=== PATIENT | female | born 1935 | race Caucasian/White ===

== ENCOUNTER → 2020-10-03 | Outpatient (CLI) | payer MEDICARE ==
[~2020-10-03] MED LIST: PERFLUTREN PROTEIN-A MICROSPHR 0.22 MG/ML 3 ML VIAL. IV ONE
--- NOTE | 2020-10-03 13:25 | CARD ---
MR#: [id number] Date of Study: 10/03/2020 Ordering Physician: JANES ROSE, Referring Physician: JANES ROSE Tech: Tiffanie Alatorre [facility] APPROVED REPORT EXAM: Two-dimensional and M-mode echocardiogram with Doppler and color Doppler. Other Information Quality : Technically LimitedHR: 78bpm Rhythm : NSR INDICATION COPD Dyspnea CAD Echo Enhancing Agent Indication: Endocardial border delineation Agent/Amount Used: Optison 2mL RISK FACTORS Hypertension Hyperlipidemia 2D DIMENSIONS RVDd3.3 (2.9-3.5cm)IVSd0.9 (0.7-1.1cm) LVDd3.3 (3.9-5.9cm)PWd1.0 (0.7-1.1cm) LVDs1.8 (2.5-4.0cm)FS (%) 44.8 % SV34.3 mlLVEF(%)77.3 (>50%) Aortic Valve AoV Peak Fabio.92.2cm/sAoV VTI19.5cm AO Peak GR.3.4mmHgLVOT Peak Fabio.111.5cm/s LVOT VTI 28.59cmAO Mean GR.2mmHg Mitral Valve MV E Zyhipwao00.2cm/sMV DECEL [id number] MV A Hplntbqq98.0cm/sMV [id number] E/A Ratio0.8MVA (PHT)3.32cm2 TDI E/Lateral E'6.9E/Medial E'9.4 Pulmonary Valve PV Peak Decjoegd552.4cm/sPV Peak Grad.5mmHg Tricuspid Valve TR P. Wmwrssrm509jd/sTR Peak Gr.18mmHg LEFT VENTRICLE The left ventricle is normal size. There is normal left ventricular wall thickness. The left ventricu lar systolic function is normal and the ejection fraction is within normal range. Estimated ejection fraction 60-65%. There is normal LV segmental wall motion. Transmitral Doppler flow pattern is Grade I-abnormal relaxation pattern. RIGHT VENTRICLE The right ventricle is normal size. There is normal right ventricular wall thickness. The right ventr icular systolic function is normal. ATRIA The left atrium size is normal. The right atrium size is normal. The interatrial septum is intact wit h no evidence for an atrial septal defect or patent foramen ovale as noted on 2-D or Doppler imaging. AORTIC VALVE The aortic valve is normal in structure and function. Doppler and Color Flow revealed no significant aortic regurgitation. There is no significant aortic valvular stenosis. MITRAL VALVE The mitral valve is normal in structure and function. There is no evidence of mitral valve prolapse. There is no mitral valve stenosis. Doppler and Color Flow revealed no mitral valve regurgitation note d. TRICUSPID VALVE The tricuspid valve is normal in structure and function. Doppler and Color Flow revealed trace tricus pid regurgitation. Estimated PAP 21 mmHg. There is no tricuspid valve stenosis. PULMONIC VALVE Doppler and Color Flow revealed no pulmonic valvular regurgitation. There is no pulmonic valvular surya nosis. GREAT VESSELS The aortic root is normal in size. The ascending aorta is normal in size. The IVC is normal in size a nd collapses >50% with inspiration. PERICARDIAL EFFUSION There is no evidence of significant pericardial effusion. Critical Notification Critical Value: No <Conclusion> The left ventricular systolic function is normal and the ejection fraction is within normal range. E stimated ejection fraction 60-65%. There is normal LV segmental wall motion. Signed by : Kulwant Nath, Electronically Approved : 10/03/2020 13:24:52
--- NOTE | 2020-10-03 13:30 | RAD ---
MR#: [id number] Date of Study: 10/03/2020 Ordering Physician: JANES ROSE, Referring Physician: JANES ROSE, Tech: Mariana Ornelas, RDMS, RVT, RTR APPROVED REPORT Patient Location: OUT-PATIENT Indications CAD; Cold Feet Risk Factors Hypertension Hyperlipidemia VELOCITY AND DOPPLER WAVEFORM ANALYSIS RIGHT cm/secWaveformSeverity LEFT cm/secWaveform Severity pCFA 235.2BiphasicpCFA 186.4Biphasic dCFA 121.5BiphasicdCFA 150.4Biphasic Prof Fem Art. 136.3BiphasicProf Fem Art. 165.8Biphasic Fem Art Prox. 147.8BiphasicFem Art Prox. 124.7Biphasic Fem Art Mid. 115.7BiphasicFem Art Mid. 124.7Biphasic Fem Art Dist. 76.0BiphasicFem Art Dist. 126.0Biphasic Pop Art(AK) 90.1BiphasicPop Art(AK) 74.4Biphasic AUTOMATIC TIRE TESTER Prox. 85.1BiphasicPTA Prox. 80.2Biphasic AUTOMATIC TIRE TESTER Dist. 58.5BiphasicPTA Dist. 55.9Biphasic Per Art Prox. 95.9BiphasicPer Art Prox. 90.9Biphasic BERTO Prox. 95.9BiphasicATA Prox. 70.7Biphasic DPA 50BiphasicDPA 85Biphasic Findings Grayscale images demonstrate moderate diffuse plaque involving the bilateral lower extremity arterial vessels. Mildly elevated velocities are noted at the right common femoral artery but no focal high- grade stenosis identified. There is three-vessel runoff below the knee with adequate velocities. Critical Notification Critical Value: No <Conclusion> 1. No significant lower extremity arterial disease noted with three-vessel runoff below the knee. Th ere are mostly biphasic waveforms throughout the arterial course. 2. Mildly elevated velocities of the bilateral common femoral arteries could suggest more proximal i nflow disease, correlate with clinical exam or consider FANNY study. Signed by : Kulwant Nath, Electronically Approved : 10/03/2020 13:30:32
== END ==
LOC: ECHO 08:44
PROVIDERS: ATTEND Internal Medicine Cardiovascular Disease
DX: I25.10 Atherosclerotic heart disease of native coronary artery without angina pectoris (principal); I70.203 Unspecified atherosclerosis of native arteries of extremities, bilateral legs; I10 Essential (primary) hypertension; E78.5 Hyperlipidemia, unspecified
CPT/HCPCS: 93306; 93925; Q9956

== ENCOUNTER → 2020-11-11 | Outpatient (CLI) | payer MEDICARE ==
[2020-11-11 12:56] LABS: BASO # 0.1 x10^3/uL (0.0-0.2); BASO % 1 % (0-3); EOS # 0.5 x10^3/uL (0.0-0.7); EOS % 7 % (0-3); HEMATOCRIT 24.1 % (36.0-47.0); HEMOGLOBIN 7.5 g/dL (12.0-15.5); LYMPH # 1.7 x10^3/uL (1.0-4.8); LYMPH % 22 % (24-48); MEAN CORPUSCULAR HEMOGLOBIN 26 pg (25-35); MEAN CORPUSCULAR HGB CONC 31 g/dL (31-37); MEAN CORPUSCULAR VOLUME 83 fL (79-100); MONO # 0.6 x10^3/uL (0.0-1.1); MONO % 8 % (0-9); NEUT # 4.9 x10^3/uL (1.8-7.7); NEUT % 64 % (31-73); PLATELET COUNT 320 x10^3/uL (140-400); RED BLOOD COUNT 2.91 x10^6/uL (3.50-5.40); RED CELL DISTRIBUTION WIDTH 17.3 % (11.5-14.5); WHITE BLOOD COUNT 7.7 x10^3/uL (4.0-11.0)
[2020-11-11 13:13] LABS: ANION GAP 12 (6-14); BLOOD UREA NITROGEN 19 mg/dL (7-20); BUN/CREATININE RATIO 17 (6-20); CARBON DIOXIDE 22 mmol/L (21-32); CHLORIDE 109 mmol/L (98-107); CREATININE 1.1 mg/dL (0.6-1.0); GFR 47.3; GLUCOSE 87 mg/dL (70-99); POTASSIUM 4.3 mmol/L (3.5-5.1); SODIUM 143 mmol/L (136-145)
[2020-11-11 13:19] LABS: ALBUMIN 3.5 g/dL (3.4-5.0); ALK PHOS 320 U/L (46-116); ALT (SGPT) 56 U/L (14-59); AST (SGOT) 38 U/L (15-37); LACTATE DEHYDROGENASE 207 U/L (81-234); TOTAL BILIRUBIN 0.3 mg/dL (0.2-1.0)
[2020-11-11 13:20] LABS: C-REACTIVE PROTEIN < 0.5 mg/L (0-3.3)
[2020-11-11 15:26] LABS: ANISOCYTOSIS SLIGHT; PLT ESTIMATE ADEQUATE (ADEQUATE); POIKILOCYTOSIS SLIGHT; SCHISTOCYTES FEW
[2020-11-11 15:27] LABS: OVALOCYTES FEW
[2020-11-11 20:08] LABS: RHEUMATOID FACTOR <10.0 IU/mL (0.0-13.9)
[2020-11-12 13:17] LABS: KAPPA LAMBDA RATIO 1.12 (0.26-1.65); LAMBDA FREE 36.6 mg/L (5.7-26.3)
[2020-11-12 14:30] LABS: CALCIUM PTH 10.5 mg/dL (8.7-10.3); CREATININE PTH 0.96 mg/dL (0.57-1.00); PHOSPHORUS PTH 2.6 mg/dL (3.0-4.3); PTH INTACT 189 pg/mL (15-65)
[2020-11-12 15:18] LABS: ALBUM 3.3 g/dL (2.9-4.4); ALPHA 1 0.3 g/dL (0.0-0.4); ALPHA 2 0.8 g/dL (0.4-1.0); PROTEIN TOTAL 6.4 g/dL (6.0-8.5); SPEP AG RATIO 1.1 (0.7-1.7)
[2020-11-12 18:09] LABS: ANA INTERP Negative (.)
== END ==
LOC: ONCLAB 11:54
PROVIDERS: ATTEND Internal Medicine
DX: D50.8 Other iron deficiency anemias (principal)
CPT/HCPCS: 36415; 80053; 82306; 82525; 83010; 83520; 83615; 83970; 84165; 85025; 85045; 85651; 86038; 86140; 86200; 86317; 86431; 86704; 86803; 86880; 87340

== ENCOUNTER → 2020-11-21 | Outpatient (CLI) | payer MEDICARE ==
[2020-11-21 12:06] LABS: BASO # 0.1 x10^3/uL (0.0-0.2); BASO % 1 % (0-3); EOS # 0.4 x10^3/uL (0.0-0.7); EOS % 7 % (0-3); HEMOGLOBIN 8.1 g/dL (12.0-15.5); LYMPH # 1.1 x10^3/uL (1.0-4.8); LYMPH % 18 % (24-48); MEAN CORPUSCULAR HEMOGLOBIN 28 pg (25-35); MEAN CORPUSCULAR HGB CONC 32 g/dL (31-37); MEAN CORPUSCULAR VOLUME 86 fL (79-100); MONO # 0.5 x10^3/uL (0.0-1.1); MONO % 9 % (0-9); NEUT % 66 % (31-73); PLATELET COUNT 250 x10^3/uL (140-400); RED CELL DISTRIBUTION WIDTH 23.6 % (11.5-14.5); WHITE BLOOD COUNT 6.1 x10^3/uL (4.0-11.0)
[2020-11-21 12:26] LABS: CALCIUM 9.6 mg/dL (8.5-10.1); CREATININE 1.4 mg/dL (0.6-1.0); GFR 35.8; POTASSIUM 4.6 mmol/L (3.5-5.1)
[2020-11-21 12:31] LABS: ALBUMIN 3.1 g/dL (3.4-5.0); TOTAL BILIRUBIN 0.2 mg/dL (0.2-1.0); TOTAL PROTEIN 6.3 g/dL (6.4-8.2)
== END ==
LOC: ONCLAB 11:45
PROVIDERS: ATTEND Physician Assistant
DX: D50.8 Other iron deficiency anemias (principal)
CPT/HCPCS: 36415; 80053; 85025

== ENCOUNTER → 2020-12-04 | Outpatient (CLI) | payer MEDICARE ==
[2020-12-04 10:57] LABS: BASO # 0.1 x10^3/uL (0.0-0.2); BASO % 1 % (0-3); EOS # 0.6 x10^3/uL (0.0-0.7); EOS % 10 % (0-3); HEMATOCRIT 30.6 % (36.0-47.0); HEMOGLOBIN 9.8 g/dL (12.0-15.5); LYMPH # 1.1 x10^3/uL (1.0-4.8); LYMPH % 18 % (24-48); MEAN CORPUSCULAR HEMOGLOBIN 29 pg (25-35); MEAN CORPUSCULAR HGB CONC 32 g/dL (31-37); MEAN CORPUSCULAR VOLUME 89 fL (79-100); MONO # 0.5 x10^3/uL (0.0-1.1); MONO % 8 % (0-9); NEUT # 3.9 x10^3/uL (1.8-7.7); NEUT % 63 % (31-73); PLATELET COUNT 231 x10^3/uL (140-400); RED BLOOD COUNT 3.43 x10^6/uL (3.50-5.40); RED CELL DISTRIBUTION WIDTH 24.1 % (11.5-14.5); WHITE BLOOD COUNT 6.1 x10^3/uL (4.0-11.0)
[2020-12-04 11:08] LABS: CALCIUM 9.9 mg/dL (8.5-10.1); CREATININE 1.3 mg/dL (0.6-1.0); POTASSIUM 4.6 mmol/L (3.5-5.1)
== END ==
LOC: ONCLAB 10:40
PROVIDERS: ATTEND Physician Assistant
DX: D50.8 Other iron deficiency anemias (principal)
CPT/HCPCS: 36415; 80048; 85025

== ENCOUNTER → 2020-12-12 | Outpatient (CLI) | payer MEDICARE ==
[~2020-12-12] MED LIST changes: +IOHEXOL 300 MG/ML 100ML VIAL. IV ONE; +IOHEXOL 300 MG/ML 50 ML VIAL. IJ ONE; -PERFLUTREN PROTEIN-A MICROSPHR 0.22 MG/ML 3 ML VIAL. IV ONE
[2020-12-12] MEDS: IOHEXOL 240 MG/ML 50ML VIAL. PO ONE (11:00)
--- NOTE | 2020-12-12 13:13 | RAD ---
EXAM: Abdomen and pelvis CT with intravenous contrast. HISTORY: Iron deficiency anemia. TECHNIQUE: Computed tomographic images of the abdomen and pelvis were obtained following the administ ration of intravenous contrast. Multiplanar reformatting was performed. *One or more of the following individualized dose reduction techniques were utilized for this examina tion: 1. Automated exposure control. 2. Adjustment of the mA and/or kV according to patient size. 3. Use of iterative reconstruction technique. COMPARISON: None. FINDINGS: Evaluation of the lower thorax demonstrates a small fat-containing posterior right diaphrag matic hernia. There is lateral posterior dependent and basilar atelectasis. There is no infiltrate, p leural effusion or suspicious pulmonary nodule. No suspicious hepatic lesion is seen. There is biliary ductal dilatation. This is likely due to reservoir effect status post cholecystomy. There are calcifications within the pancreatic tail. These are vascular or due to the sequela of product design engineer dae pancreatitis. There are splenic granulomas. The spleen is normal in size. The adrenal glands are unremarkable. 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 There is a 7 mm simple appearing left renal c yst and 5 mm simple appearing right renal cyst. There is no appendicitis. There is colonic diverticulosis. There is no convincing diverticulitis. The re is no bowel obstruction. The bladder is unremarkable. There is no adnexal lesion. The aorta is nor mal in caliber. There is no lymphadenopathy. There is grade 1 anterolisthesis at the lower lumbar lev els. There is multilevel degenerative change involving the spine, primarily at L5-S1. IMPRESSION: 1. Colonic diverticulosis. 2. Biliary ductal dilatation. This can be seen with reservoir effect status post cholecystectomy. 3. Small simple appearing renal cysts. Follow-up is not routinely performed for simple cysts. Electronically signed by: Carrie Esquivel MD (12/12/2020 1:11 PM) [id number]
== END ==
LOC: CT 10:31
PROVIDERS: ATTEND Internal Medicine Gastroenterology
DX: K57.30 Diverticulosis of large intestine without perforation or abscess without bleeding (principal); N28.1 Cyst of kidney, acquired; M43.16 Spondylolisthesis, lumbar region; M47.817 Spondylosis without myelopathy or radiculopathy, lumbosacral region; K44.9 Diaphragmatic hernia without obstruction or gangrene
CPT/HCPCS: 74177; Q9966

== ENCOUNTER → 2020-12-18 | Outpatient (CLI) | payer MEDICARE ==
[2020-12-18 10:46] LABS: BASO # 0.1 x10^3/uL (0.0-0.2); BASO % 1 % (0-3); EOS # 0.9 x10^3/uL (0.0-0.7); EOS % 13 % (0-3); HEMATOCRIT 31.7 % (36.0-47.0); HEMOGLOBIN 10.5 g/dL (12.0-15.5); LYMPH # 1.2 x10^3/uL (1.0-4.8); LYMPH % 18 % (24-48); MEAN CORPUSCULAR HEMOGLOBIN 30 pg (25-35); MEAN CORPUSCULAR HGB CONC 33 g/dL (31-37); MEAN CORPUSCULAR VOLUME 90 fL (79-100); MONO # 0.5 x10^3/uL (0.0-1.1); MONO % 7 % (0-9); NEUT # 4.2 x10^3/uL (1.8-7.7); NEUT % 61 % (31-73); PLATELET COUNT 236 x10^3/uL (140-400); RED BLOOD COUNT 3.54 x10^6/uL (3.50-5.40); RED CELL DISTRIBUTION WIDTH 22.3 % (11.5-14.5); WHITE BLOOD COUNT 6.9 x10^3/uL (4.0-11.0)
[2020-12-18 10:56] LABS: CALCIUM 10.1 mg/dL (8.5-10.1); CREATININE 1.1 mg/dL (0.6-1.0); GFR 47.3; POTASSIUM 3.9 mmol/L (3.5-5.1)
[2020-12-18 11:13] LABS: ALBUMIN 3.3 g/dL (3.4-5.0); TOTAL BILIRUBIN 0.3 mg/dL (0.2-1.0); TOTAL PROTEIN 6.6 g/dL (6.4-8.2)
[2020-12-18 13:16] LABS: ANISOCYTOSIS MOD; PLT ESTIMATE ADEQUATE (ADEQUATE)
== END ==
LOC: ONCLAB 10:28
PROVIDERS: ATTEND Internal Medicine Hematology & Oncology
DX: D50.8 Other iron deficiency anemias (principal)
CPT/HCPCS: 36415; 80053; 82728; 83540; 83550; 85025

== ENCOUNTER 2020-12-26 17:23 | Inpatient (IN) | payer MEDICARE ==
[~2020-12-26] VITALS: Ht 149.9 cm; Wt 57.2 kg
--- NOTE | 2020-12-26 18:53 | PHYS DOC ---
General Adult EDM: Chief Complaint: BLOODY STOOL HPI: HPI: 85-year-old female past medical history of CAD (3 stents 05/2020 on Brilinta), BASHIR w/iron transfusions/daily iron (last transfusion 11/21/20), polymyalgia rheumatica, hyperlipidemia, hypertension and GERD, presents the ED with her biological daughter (patient consents to his/her/their knowledge and involvement in pts' medical care), with complaints of black, " coffee-ground stools" for the past 2 to 3 months that she has been following up with Dr. Fu for this. He had a recent CT scan this past week that was unremarkable. Has a scheduled follow-up appointment with Dr. Fu this next week to discuss possible GI involvement. No history of EGD or colonoscopy. Reports exercise intolerance described as "fatigue, so I just sit down" that has worsened over the past few months. Denies any falls, trauma, head injury, syncope, chest pain or dyspnea. Review of Systems: Review of Systems: Constitutional: Denies fever or chills. [] Eyes: Denies change in visual acuity. [] HENT: Denies nasal congestion or sore throat. [] Respiratory: Denies cough or shortness of breath. [] Cardiovascular: Denies chest pain or edema. [] GI: Denies abdominal pain, nausea, vomiting, or diarrhea. [] : Denies dysuria or vaginal bleeding Musculoskeletal: Denies back pain or joint pain. [] Integument: Denies rash or diaphoresis Neurologic: Denies headache, focal weakness or sensory changes. [] Endocrine: Denies polyuria or polydipsia. [] Lymphatic: Denies swollen glands. [] Psychiatric: Denies depression or anxiety. [] Heart Score: C/O Chest Pain: No Risk Factors: Risk Factors: DM, Current or recent (<one month) smoker, HTN, HLP, family history of CAD, obesity. Risk Scores: Score 0 - 3: 2.5% MACE over next 6 weeks - Discharge Home Score 4 - 6: 20.3% MACE over next 6 weeks - Admit for Clinical Observation Score 7 - 10: 72.7% MACE over next 6 weeks - Early Invasive Strategies Allergies: Allergies: Allergies Coded Allergies Type Severity Reaction Last Updated Verified Sulfa (Sulfonamide Antibiotics) Allergy Intermediate 12/12/20 Yes Physical Exam: PE: Constitutional: Well developed, well nourished, no acute distress, non-toxic appearance. HENT: Normocephalic, atraumatic, Eyes: EOMI, conjunctiva normal, no discharge, no scleral icterus Neck: Normal range of motion, supple, Cardiovascular: S1/2 present, regular rhythm Lungs & Thorax: Speaking in full sentences, bilateral equal chest rise, no tachypnea or increased work of breathing Abdomen: soft, no tenderness, Skin: Warm, dry, no erythema, no rash, no jaundice (darker walsh skin/is kazakh) Back: No midline tenderness, no CVA tenderness. [] Extremities: No tenderness, no cyanosis, no lower extremity edema Neurologic: Alert and oriented X 3, normal motor function, normal sensory function, no focal deficits noted. [] Psychologic: Affect normal, judgement normal, mood normal. [] EKG: EKG: [] Radiology/Procedures: Radiology/Procedures: IMAGING REPORT Signed PATIENT: CLAY AMAYA ACCOUNT: [id number] : 1935 LOCATION: CT AGE: 85 SEX: F EXAM STATUS: REG CLI ORD. PHYSICIAN: JOSETTE FU MD REASON: BASHIR PROCEDURE: CT ABD PELV W/ORAL&IV CONTRAST EXAM: Abdomen and pelvis CT with intravenous contrast. HISTORY: Iron deficiency anemia. TECHNIQUE: Computed tomographic images of the abdomen and pelvis were obtained following the administration of intravenous contrast. Multiplanar reformatting was performed. *One or more of the following individualized dose reduction techniques were utilized for this examination: 1. Automated exposure control. 2. Adjustment of the mA and/or kV according to patient size. 3. Use of iterative reconstruction technique. COMPARISON: None. FINDINGS: Evaluation of the lower thorax demonstrates a small fat-containing posterior right diaphragmatic hernia. There is lateral posterior dependent and basilar atelectasis. There is no infiltrate, pleural effusion or suspicious pulmonary nodule. No suspicious hepatic lesion is seen. There is biliary ductal dilatation. This is likely due to reservoir effect status post cholecystomy. There are calcifications within the pancreatic tail. These are vascular or due to the sequela of chronic pancreatitis. There are splenic granulomas. The spleen is normal in size. The adrenal glands are unremarkable. 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 There is a 7 mm simple appearing left renal cyst and 5 mm simple appearing right renal cyst. There is no appendicitis. There is colonic diverticulosis. There is no con vincing diverticulitis. There is no bowel obstruction. The bladder is unremarkable. There is no adnexal lesion. The aorta is normal in caliber. There is no lymphadenopathy. There is grade 1 anterolisthesis at the lower lumbar levels. There is multilevel degenerative change involving the spine, primarily at L5-S1. IMPRESSION: 1. Colonic diverticulosis. 2. Biliary ductal dilatation. This can be seen with reservoir effect status post cholecystectomy. 3. Small simple appearing renal cysts. Follow-up is not routinely performed for simple cysts. Electronically signed by: Carrie Medeiros MD (12/12/2020 1:11 PM) [id number] DICTATED and SIGNED BY: CARRIE MEDEIROS MD DATE: 12/12/20 [id number] IMAGING REPORT Signed PATIENT: CLAY AMAYA ACCOUNT: [id number] : 1935 LOCATION: ER AGE: 85 SEX: F EXAM STATUS: REG ER ORD. PHYSICIAN: JANNY CHOWDHURY DO REASON: melena PROCEDURE: PORTABLE CHEST 1V EXAM: AP View of the chest DATE: 12/26/2020 7:19 PM INDICATION: Reason: melena / Spl. Instructions: / History: COMPARISON: No Prior FINDINGS: The heart is not enlarged. Mediastinal and hilar contours are normal. No focal parenchymal airspace opacity. No pleural effusion or pneumothorax. IMPRESSION: 1. No radiographic evidence for acute cardiopulmonary process. Electronically signed by: Anupam Love MD (12/26/2020 8:12 PM) [facility] DICTATED and SIGNED BY: ANUPAM LOVE MD DATE: 12/26/[id number] 0 Course & Med Decision Making: Course & Med Decision Making Pertinent Labs and Imaging studies reviewed. (See chart for details) I have spoken with the patient and/or caregivers. I have explained the patient's condition, diagnosis and treatment plan based on the information available to me at this time. I have answered the patient's and/or caregivers questions and answered any concerns. The patient and/or caregivers have as good an understanding of the patient's diagnosis, condition and treatment plan as can be expected at this point. The patient has been stabilized within the capability of the emergency department. The patient will be transported for further care and management or will be moved to an observation or inpatient service. I have communicated with the staff or medical practitioner taking over this patient's care. Dragon Disclaimer: Dragon Disclaimer: This electronic medical record was generated, in whole or in part, using a voice recognition dictation system. Departure Departure Impression: Primary Impression: Melena Additional Impression: Normocytic anemia Disposition: ADMITTED INPATIENT Condition: STABLE Referrals: ANNY CABALLERO APRN (PCP) JANNY CHOWDHURY DO Dec 26, 2020 18:53
[2020-12-26 18:59] LABS: BASO # 0.1 x10^3/uL (0.0-0.2); BASO % 1 % (0-3); EOS # 0.9 x10^3/uL (0.0-0.7); EOS % 13 % (0-3); HEMATOCRIT 33.7 % (36.0-47.0); HEMOGLOBIN 10.9 g/dL (12.0-15.5); LYMPH # 1.5 x10^3/uL (1.0-4.8); LYMPH % 22 % (24-48); MEAN CORPUSCULAR HEMOGLOBIN 29 pg (25-35); MEAN CORPUSCULAR HGB CONC 32 g/dL (31-37); MEAN CORPUSCULAR VOLUME 91 fL (79-100); MONO # 0.6 x10^3/uL (0.0-1.1); MONO % 8 % (0-9); NEUT % 56 % (31-73); PLATELET COUNT 218 x10^3/uL (140-400); RED BLOOD COUNT 3.71 x10^6/uL (3.50-5.40); RED CELL DISTRIBUTION WIDTH 21.3 % (11.5-14.5); WHITE BLOOD COUNT 7.1 x10^3/uL (4.0-11.0)
[2020-12-26 19:08] LABS: CALCIUM 10.7 mg/dL (8.5-10.1); CREATININE 1.2 mg/dL (0.6-1.0); GFR 42.8; POTASSIUM 3.9 mmol/L (3.5-5.1)
[2020-12-26 19:14] LABS: ALBUMIN 3.6 g/dL (3.4-5.0); ALBUMIN/GLOBULIN RATIO 1.1 (1.0-1.7); TOTAL BILIRUBIN 0.3 mg/dL (0.2-1.0)
[2020-12-26 19:44] LABS: ANISOCYTOSIS MOD; PLT ESTIMATE ADEQUATE (ADEQUATE)
--- NOTE | 2020-12-26 20:15 | RAD ---
EXAM: AP View of the chest DATE: 12/26/2020 7:19 PM INDICATION: Reason: melena / Spl. Instructions: / History: COMPARISON: No Prior FINDINGS: The heart is not enlarged. Mediastinal and hilar contours are normal. No focal parenchymal airspace opacity. No pleural effusion or pneumothorax. IMPRESSION: 1. No radiographic evidence for acute cardiopulmonary process. Electronically signed by: Anupam Gilliland MD (12/26/2020 8:12 PM) BLOSSOM
[2020-12-26 20:17] LABS: BILIRUBIN,URINE NEGATIVE (NEG); CLARITY,URINE CLEAR; COLOR,URINE YELLOW; NITRITE,URINE NEGATIVE (NEG); PH,URINE 5.5 (<5.0-8.0); PROTEIN,URINE NEGATIVE (NEG-TRACE); UROBILINOGEN,URINE 0.2 mg/dL (0.2 mg/dL)
[2020-12-26 20:34] LABS: BACTERIA,URINE FEW /HPF (0-FEW); RBC,URINE OCC /HPF (0-2); WBC,URINE OCC /HPF (0-4)
[2020-12-26 20:37] LABS: PROTHROMBIN TIME PATIENT 12.6 SEC (11.7-14.0)
[2020-12-26] MEDS ORDERED: FAMOTIDINE 20 MG/2 ML VIAL IVP ONE (22:30)
[2020-12-26] MEDS ORDERED: IV NORMAL SALINE 1000ML BAG 1,000 ML IV ONE (22:30)
[2020-12-26] MEDS ORDERED: PANTOPRAZOLE IV PUSH 40 MG VIAL. IVP ONE (23:00)
[2020-12-27 01:26] VITALS: BP 162/84
[2020-12-27] MEDS ORDERED: HYDR200T5 PO (01:52)
[2020-12-27] MEDS ORDERED: ATOR40TA59 PO (01:52)
[2020-12-27] MEDS ORDERED: TICA90TA PO (01:55)
[2020-12-27] MEDS ORDERED: METO25TA4 PO (01:55)
[2020-12-27] MEDS ORDERED: NITR0.4T22 SL (01:55)
[2020-12-27] MEDS ORDERED: FERR325T14 PO (01:55)
[2020-12-27] MEDS ORDERED: OXYB5TAB33 PO (01:55)
[2020-12-27] MEDS ORDERED: LOSA-73 PO (01:55)
[2020-12-27] MEDS ORDERED: PANT40TA77 PO (01:55)
[2020-12-27 02:49] VITALS: BP 140/59
[2020-12-27 07:00] VITALS: BP 142/75
[2020-12-27 09:59] LABS: BASO # 0.1 x10^3/uL (0.0-0.2); BASO % 1 % (0-3); EOS # 0.7 x10^3/uL (0.0-0.7); EOS % 13 % (0-3); HEMATOCRIT 32.7 % (36.0-47.0); HEMOGLOBIN 10.9 g/dL (12.0-15.5); LYMPH # 1.3 x10^3/uL (1.0-4.8); LYMPH % 23 % (24-48); MEAN CORPUSCULAR HEMOGLOBIN 30 pg (25-35); MEAN CORPUSCULAR HGB CONC 33 g/dL (31-37); MEAN CORPUSCULAR VOLUME 91 fL (79-100); MONO # 0.4 x10^3/uL (0.0-1.1); MONO % 8 % (0-9); NEUT # 3.2 x10^3/uL (1.8-7.7); NEUT % 56 % (31-73); PLATELET COUNT 198 x10^3/uL (140-400); RED CELL DISTRIBUTION WIDTH 21.6 % (11.5-14.5); WHITE BLOOD COUNT 5.8 x10^3/uL (4.0-11.0)
[2020-12-27 10:06] LABS: ALBUMIN 3.1 g/dL (3.4-5.0); CALCIUM 9.9 mg/dL (8.5-10.1); CREATININE 0.9 mg/dL (0.6-1.0); GFR 59.7; POTASSIUM 4.4 mmol/L (3.5-5.1); TOTAL BILIRUBIN 0.3 mg/dL (0.2-1.0); TOTAL PROTEIN 6.1 g/dL (6.4-8.2)
[2020-12-27 11:00] VITALS: BP 146/71
--- NOTE | 2020-12-27 12:02 | PDOC2 ---
GI CONSULT Date of Service: DATE: 12/27/20 TIME: 11:47 Reason For Consult: Anemia/black stools HPI: HPI: 85 y/o female admitted from ER after history of black stools and anemia. Has been seen in our office last month for BASHIR. Had cardiac stents last fall and per family normal hemoglobin then; placed on Brilinta after stenting. BASHIR found earlier this year and placed on oral iron therapy (plus couple of iron infusions ); only black stools AFTER starting the iron. No overt blood in stool. Denies abdominal pain, N, V. Is somewhat anorectic and has lost some weight. Had attempted colonoscopy at [facility] when she was [age] thwarted by her diverticulosis/angulation. Never EGD. Long history of GERD symptoms, taking BID pantoprazole. No dysphagia, PUD, liver or pancreatic history. S/p saúl; says no stones then. Has had some elevated LFT's; these have improved since her office visit and now only mildly elevated alk phos. Dilated biliary system on CT felt to be reservoir effect post-saúl. No tobacco use. Very modest alcohol use. No GIFH. PMH: PMH: CAD, asthma, OA, HLP. S/p saúl. coronary stenting. Social History: Smoke: No ALCOHOL: rare Drugs: None ROS: GEN: Denies fevers, chills, sweats HEENT: Denies blurred vision, sore throat CV: Denies chest pain RESP: Denies shortness of air, cough GI: Per HPI : Denies hematuria, dysuria ENDO: Has lost weight. Anorectic. NEURO: Denies confusion, dizziness MSK: Denies joint pain/swelling. Has fallen. SKIN: Denies jaundice, pruritus Vitals: Vitals: Vital Signs Date Time Temp Pulse Resp B/P (MAP) Pulse Ox O2 Delivery O2 Flow Rate FiO2 12/27/20 08:00 Room Air 12/27/20 07:00 97.5 67 19 142/75 (97) 97 97.5 Labs: Labs: Laboratory Tests Test 12/26/20 18:20 12/26/20 20:07 12/26/20 20:20 12/27/20 09:25 White Blood Count 7.1 x10^3/uL (4.0-11.0) 5.8 x10^3/uL (4.0-11.0) Red Blood Count 3.71 x10^6/uL (3.50-5.40) 3.60 x10^6/uL (3.50-5.40) Hemoglobin 10.9 g/dL (12.0-15.5) 10.9 g/dL (12.0-15.5) Hematocrit 33.7 % (36.0-47.0) 32.7 % (36.0-47.0) Mean Corpuscular Volume 91 fL (79-100) 91 fL (79-100) Mean Corpuscular Hemoglobin 29 pg (25-35) 30 pg (25-35) Mean Corpuscular Hemoglobin Concent 32 g/dL (31-37) 33 g/dL (31-37) Red Cell Distribution Width 21.3 % (11.5-14.5) 21.6 % (11.5-14.5) Platelet Count 218 x10^3/uL (140-400) 198 x10^3/uL (140-400) Neutrophils (%) (Auto) 56 % (31-73) 56 % (31-73) Lymphocytes (%) (Auto) 22 % (24-48) 23 % (24-48) Monocytes (%) (Auto) 8 % (0-9) 8 % (0-9) Eosinophils (%) (Auto) 13 % (0-3) 13 % (0-3) Basophils (%) (Auto) 1 % (0-3) 1 % (0-3) Neutrophils # (Auto) 4.0 x10^3/uL (1.8-7.7) 3.2 x10^3/uL (1.8-7.7) Lymphocytes # (Auto) 1.5 x10^3/uL (1.0-4.8) 1.3 x10^3/uL (1.0-4.8) Monocytes # (Auto) 0.6 x10^3/uL (0.0-1.1) 0.4 x10^3/uL (0.0-1.1) Eosinophils # (Auto) 0.9 x10^3/uL (0.0-0.7) 0.7 x10^3/uL (0.0-0.7) Basophils # (Auto) 0.1 x10^3/uL (0.0-0.2) 0.1 x10^3/uL (0.0-0.2) Platelet Estimate Adequate (ADEQUATE) Anisocytosis Mod Sodium Level 141 mmol/L (136-145) 145 mmol/L (136-145) Potassium Level 3.9 mmol/L (3.5-5.1) 4.4 mmol/L (3.5-5.1) Chloride Level 108 mmol/L (98-107) 113 mmol/L (98-107) Carbon Dioxide Level 22 mmol/L (21-32) 24 mmol/L (21-32) Anion Gap 11 (6-14) 8 (6-14) Blood Urea Nitrogen 15 mg/dL (7-20) 11 mg/dL (7-20) Creatinine 1.2 mg/dL (0.6-1.0) 0.9 mg/dL (0.6-1.0) Estimated GFR (Cockcroft-Gault) 42.8 59.7 BUN/Creatinine Ratio 13 (6-20) 12 (6-20) Glucose Level 116 mg/dL (70-99) 86 mg/dL (70-99) Calcium Level 10.7 mg/dL (8.5-10.1) 9.9 mg/dL (8.5-10.1) Total Bilirubin 0.3 mg/dL (0.2-1.0) 0.3 mg/dL (0.2-1.0) Aspartate Amino Transf (AST/SGOT) 44 U/L (15-37) 35 U/L (15-37) Alanine Aminotransferase (ALT/SGPT) 59 U/L (14-59) 50 U/L (14-59) Alkaline Phosphatase 219 U/L (46-116) 176 U/L (46-116) Total Protein 7.0 g/dL (6.4-8.2) 6.1 g/dL (6.4-8.2) Albumin 3.6 g/dL (3.4-5.0) 3.1 g/dL (3.4-5.0) Albumin/Globulin Ratio 1.1 (1.0-1.7) 1.0 (1.0-1.7) Urine Collection Type Void Urine Color Yellow Urine Clarity Clear Urine pH 5.5 (<5.0-8.0) Urine Specific [place] <=1.005 (1.000-1.030) Urine Protein Negative mg/dL (NEG-TRACE) Urine Glucose (UA) Negative mg/dL (NEG) Urine Ketones (Stick) Negative mg/dL (NEG) Urine Blood Negative (NEG) Urine Nitrite Negative (NEG) Urine Bilirubin Negative (NEG) Urine Urobilinogen Dipstick 0.2 mg/dL (0.2 mg/dL) Urine Leukocyte Esterase Negative (NEG) Urine RBC Occ /HPF (0-2) Urine WBC Occ /HPF (0-4) Urine Squamous Epithelial Cells Mod /LPF Urine Bacteria Few /HPF (0-FEW) Prothrombin Time 12.6 SEC (11.7-14.0) Prothromb Time International Ratio 1.0 (0.8-1.1) Activated Partial Thromboplast Time 36 SEC (24-38) Hemoglobin stable; actually up from last outpatient determination here. Allergies: Coded Allergies: Sulfa (Sulfonamide Antibiotics) (Verified Allergy, Intermediate, 12/12/20) Medications: Current Medications Medications (Trade) Dose Ordered Sig/M[place]ick Route PRN Reason Start Time Stop Time Status Last Admin Dose Admin Sodium Chloride 1,000 ml @ 100 mls/hr 1X ONCE IV 12/26/20 22:30 12/27/20 08:29 DC 12/26/20 23:54 Pantoprazole Sodium (PROTONIX VIAL for IV PUSH) 80 mg 1X ONCE IVP 12/26/20 23:00 12/26/20 23:01 DC 12/26/20 23:54 Imaging: Imaging: On outpatient CT: MPRESSION: 1. Colonic diverticulosis. 2. Biliary ductal dilatation. This can be seen with reservoir effect status post cholecystectomy. 3. Small simple appearing renal cysts. Follow-up is not routinely performed for simple cysts. PE: GEN: NAD HEENT: Atraumatic, PERRLA LUNGS: CTAB HEART: RRR, no murmurs ABD: NABS, S/ND/NT, no masses EXTREMITY: No edema SKIN: No rashes, no jaundice NEURO/PSYCH: A & O 3 A/P: A/P: IMP: BASHIR; implies chronically bleeding lesion(s) probably unmasked by addition of anti-platelet agent last fall. Broad differential, including AVMs, occult malignancy. Peptic lesion seems unlikely given chronic PPI therapy. A malabsorptive issue seems unlikely. Pseudomelena due to po iron. Diverticulosis. No clinical evidence for acute bleeding. REC: I think OK to dismiss on her PPI and iron and continue w/u with Dr. Currie. Thanks. EMERALD GLASER MD Dec 27, 2020 12:02
--- NOTE | 2020-12-27 13:38 | DISCH ---
DISCHARGE INSTRUCTIONS Condition on Discharge Condition on Discharge: Stable Activity After Discharge Activity Instructions for Disc: Resume previous activity Diet after Discharge Diet after Discharge: Regular Contacting the DR. after DC Call your doctor for: If your condition worsens FARIDA WILKERSON MD Dec 27, 2020 13:38
--- NOTE | 2020-12-27 14:19 | PDOC ---
GENERAL General: Same day summary [id number] VITAL SIGNS Vital Signs/I&O: Vital Signs Date Time Temp Pulse Resp B/P (MAP) Pulse Ox O2 Delivery O2 Flow Rate FiO2 12/27/20 11:00 97.5 67 19 146/71 (96) 98 Room Air 97.5 I & O 12/26/20 12/26/20 12/27/20 15:00 23:00 07:00 Output Total 400 ml Balance -400 ml ALLERGIES Allergies: Allergies Coded Allergies Type Severity Reaction Last Updated Verified Sulfa (Sulfonamide Antibiotics) Allergy Intermediate 12/12/20 Yes MEDS Medications: Current Medications Medications (Trade) Dose Ordered Sig/Maverick Route PRN Reason Start Time Stop Time Status Last Admin Dose Admin Sodium Chloride 1,000 ml @ 100 mls/hr 1X ONCE IV 12/26/20 22:30 12/27/20 08:29 DC 12/26/20 23:54 Pantoprazole Sodium (PROTONIX VIAL for IV PUSH) 80 mg 1X ONCE IVP 12/26/20 23:00 12/26/20 23:01 DC 12/26/20 23:54 LAB Lab: Laboratory Tests Test 12/26/20 18:20 12/26/20 20:07 12/26/20 20:20 12/27/20 09:25 White Blood Count 7.1 x10^3/uL (4.0-11.0) 5.8 x10^3/uL (4.0-11.0) Red Blood Count 3.71 x10^6/uL (3.50-5.40) 3.60 x10^6/uL (3.50-5.40) Hemoglobin 10.9 g/dL (12.0-15.5) L 10.9 g/dL (12.0-15.5) L Hematocrit 33.7 % (36.0-47.0) L 32.7 % (36.0-47.0) L Mean Corpuscular Volume 91 fL (79-100) 91 fL (79-100) Mean Corpuscular Hemoglobin 29 pg (25-35) 30 pg (25-35) Mean Corpuscular Hemoglobin Concent 32 g/dL (31-37) 33 g/dL (31-37) Red Cell Distribution Width 21.3 % (11.5-14.5) H 21.6 % (11.5-14.5) H Platelet Count 218 x10^3/uL (140-400) 198 x10^3/uL (140-400) Neutrophils (%) (Auto) 56 % (31-73) 56 % (31-73) Lymphocytes (%) (Auto) 22 % (24-48) L 23 % (24-48) L Monocytes (%) (Auto) 8 % (0-9) 8 % (0-9) Eosinophils (%) (Auto) 13 % (0-3) H 13 % (0-3) H Basophils (%) (Auto) 1 % (0-3) 1 % (0-3) Neutrophils # (Auto) 4.0 x10^3/uL (1.8-7.7) 3.2 x10^3/uL (1.8-7.7) Lymphocytes # (Auto) 1.5 x10^3/uL (1.0-4.8) 1.3 x10^3/uL (1.0-4.8) Monocytes # (Auto) 0.6 x10^3/uL (0.0-1.1) 0.4 x10^3/uL (0.0-1.1) Eosinophils # (Auto) 0.9 x10^3/uL (0.0-0.7) H 0.7 x10^3/uL (0.0-0.7) Basophils # (Auto) 0.1 x10^3/uL (0.0-0.2) 0.1 x10^3/uL (0.0-0.2) Platelet Estimate Adequate (ADEQUATE) Anisocytosis Mod Sodium Level 141 mmol/L (136-145) 145 mmol/L (136-145) Potassium Level 3.9 mmol/L (3.5-5.1) 4.4 mmol/L (3.5-5.1) Chloride Level 108 mmol/L (98-107) H 113 mmol/L (98-107) H Carbon Dioxide Level 22 mmol/L (21-32) 24 mmol/L (21-32) Anion Gap 11 (6-14) 8 (6-14) Blood Urea Nitrogen 15 mg/dL (7-20) 11 mg/dL (7-20) Creatinine 1.2 mg/dL (0.6-1.0) H 0.9 mg/dL (0.6-1.0) Estimated GFR (Cockcroft-Gault) 42.8 59.7 BUN/Creatinine Ratio 13 (6-20) 12 (6-20) Glucose Level 116 mg/dL (70-99) H 86 mg/dL (70-99) Calcium Level 10.7 mg/dL (8.5-10.1) H 9.9 mg/dL (8.5-10.1) Total Bilirubin 0.3 mg/dL (0.2-1.0) 0.3 mg/dL (0.2-1.0) Aspartate Amino Transferase (AST) 44 U/L (15-37) H 35 U/L (15-37) Alanine Aminotransferase (ALT) 59 U/L (14-59) 50 U/L (14-59) Alkaline Phosphatase 219 U/L (46-116) H 176 U/L (46-116) H Total Protein 7.0 g/dL (6.4-8.2) 6.1 g/dL (6.4-8.2) L Albumin 3.6 g/dL (3.4-5.0) 3.1 g/dL (3.4-5.0) L Albumin/Globulin Ratio 1.1 (1.0-1.7) 1.0 (1.0-1.7) Urine Collection Type Void Urine Color Yellow Urine Clarity Clear Urine pH 5.5 (<5.0-8.0) Urine Specific Hensley <=1.005 (1.000-1.030) Urine Protein Negative mg/dL (NEG-TRACE) Urine Glucose (UA) Negative mg/dL (NEG) Urine Ketones (Stick) Negative mg/dL (NEG) Urine Blood Negative (NEG) Urine Nitrite Negative (NEG) Urine Bilirubin Negative (NEG) Urine Urobilinogen Dipstick 0.2 mg/dL (0.2 mg/dL) Urine Leukocyte Esterase Negative (NEG) Urine RBC Occ /HPF (0-2) Urine WBC Occ /HPF (0-4) Urine Squamous Epithelial Cells Mod /LPF Urine Bacteria Few /HPF (0-FEW) Prothrombin Time 12.6 SEC (11.7-14.0) Prothrombin Time INR 1.0 (0.8-1.1) Activated Partial Thromboplast Time 36 SEC (24-38) Laboratory Tests 12/26/20 18:20 12/27/20 09:25 Laboratory Tests 12/26/20 18:20 12/27/20 09:25 Justifications for Admission Other Justification FARIDA WILKERSON MD Dec 27, 2020 14:18
--- NOTE | 2020-12-27 14:28 | NUR ---
Discharge Note: ESTEPHANIA AMAYA [facility] Discharge instructions and discharge home medications reviewed with Patient and a copy given. All questions have been answered and understanding verbalized. The following instructions and handouts were given: DIVERTICULOSIS, BASHIR Discontinued lines and drains: Peripheral IV intact. Patient discharged to Home or Self Care with Family Member via Wheelchair
--- NOTE | 2020-12-27 15:54 | SSS ---
ADMIT DATE: 12/27/2020 HISTORY OF PRESENT ILLNESS: This patient is an 85-year-old woman who is a continuity outpatient of nurse practitioner, Lisa, rvda master certified rv technician, Dr. Rose, here at [facility], and gastroenterology, Dr. Fu. She has also seen Hematology here at [facility] for intravenous iron transfusions for her resistant iron deficiency anemia. The patient was sent in to the Emergency Department by her primary care team for hemoglobin of 7. However, on arrival in the Emergency Department here, her hemoglobin was at her baseline at 10.9. She has been stable here and is feeling well and hoping to get back home. I am seeing her this afternoon about 18 hours after admission, in the company of her daughter. She is sitting up, eating lunch and has no new complaints this afternoon. She tells me that she is frustrated by this problem, which has been going on for the last few months. She had 3 drug eluting stents placed in 05/2020 for unstable coronary syndrome and was started on Brilinta along with her aspirin at that point. She has had trouble since that time. The patient denies any nausea, vomiting, diarrhea, change in her bowel habits. She has had dark black stool for 6 months since starting on iron treatment. She has not had any active bleeding to her knowledge. Gastroenterology assessed the patient here and their assistance is appreciated. They recommended that she follow up with her transfer controller this week as planned. She also has an upcoming visit with Dr. Gonzalez. We have not held her aspirin and Brilinta given the recent stents. All other systems reviewed and negative. PAST MEDICAL HISTORY: 1. Coronary artery disease with 3 stents placed in 05/2020, started on dual antiplatelet treatment at that point and has had iron deficiency since then. 2. Iron deficiency anemia with blood transfusions and iron transfusions. She follows with primary care and Hematology on this. 3. Hypertension. 4. Gastroesophageal reflux disease. 5. Hyperlipidemia. 6. Polymyalgia rheumatica. MEDICATIONS: Please see the medication reconciliation form. SOCIAL HISTORY: The patient is single. She lives independently in her own home. She has a daughter who lives right down the road from her and another daughter who lives in [place]. She is present at bedside today. She has a very supportive family. She does not take any tobacco, alcohol or illicit drugs. FAMILY HISTORY: Reviewed in full and noncontributory to the present illness. PHYSICAL EXAMINATION: VITAL SIGNS: Reviewed since admission and are notable for that the patient has been afebrile, blood pressure has been in the 140s-160s/80s, heart rate is in the 50s to 60s and regular. She is breathing comfortably and saturating normally on room air. GENERAL: She is a very pleasant 85-year-old woman, alert and oriented x 3, no acute distress. HEENT: Unremarkable. NECK: Soft and supple. No adenopathy or thyromegaly noted. CHEST: Clear to auscultation. HEART: S1, S2 normal. Regular rate and rhythm. No murmurs or gallops are noted. ABDOMEN: Soft, nontender, nondistended. No masses or organomegaly noted. EXTREMITIES: Unremarkable for acute abnormality. LABORATORY DATA AND OTHER STUDIES: Admission hemoglobin is 10.9 despite an outpatient reported level of 7, white count of 7.1, hemoglobin stable this morning, repeated at 10.9, platelet count is 218. Chemistry panel is notable for creatinine of 0.9 this morning after hydration. Alkaline phosphatase is elevated on admission at 219, this morning at 176. Bilirubin is normal. AST and ALT are normal. INR is 1.0. Chest x-ray is unremarkable for acute abnormality. ASSESSMENT AND PLAN: The patient is an 85-year-old woman with iron deficiency anemia since dual antiplatelet treatment was started in the fall at the placement of 3 coronary stents. She is stable and looking forward to discharge. She has been seen by Gastroenterology and their assistance is appreciated. They recommend that she continue b.i.d. proton pump inhibitor and continue with her dual antiplatelet medication at this point. She does need to see her continuity team in followup. Observation status was most appropriate as we did not anticipate a length of stay longer than one midnight. FINAL DIAGNOSES: Stable iron deficiency anemia in the setting of dual antiplatelet treatment for coronary artery stents. SANTANA BROWN: Sabi TID: [id number] CC: ANNY GONZALEZ APRN, JANES ROSE MD, JOSETTE FU MD [facility]
== END 2020-12-27 14:20 | disposition home or self-care (01) | DRG 812 ==
LOC: ER 17:23 → 2 SOUTH 23:21
PROVIDERS: ADMIT Family Medicine; ATTEND Family Medicine
DX: D50.9 Iron deficiency anemia, unspecified (principal); E78.5 Hyperlipidemia, unspecified; I10 Essential (primary) hypertension; J45.909 Unspecified asthma, uncomplicated; N28.1 Cyst of kidney, acquired; Z90.49 Acquired absence of other specified parts of digestive tract; Z95.5 Presence of coronary angioplasty implant and graft; K21.9 Gastro-esophageal reflux disease without esophagitis; K57.90 Diverticulosis of intestine, part unspecified, without perforation or abscess without bleeding; Z88.2 Allergy status to sulfonamides; M19.90 Unspecified osteoarthritis, unspecified site
CPT/HCPCS: 36415; 71045; 80053; 81001; 85025; 85610; 85730; 96361; 96374; C9113; J7030; 99285-25; G0378

== ENCOUNTER → 2021-01-15 | Outpatient (CLI) | payer MEDICARE ==
[2020-12-27 11:00] VITALS: BP 146/71
[~2021-01-15] MED LIST changes: +ATOR40TA59 PO; +FERR325T14 PO; +HYDR200T5 PO; -IOHEXOL 300 MG/ML 100ML VIAL. IV ONE; -IOHEXOL 300 MG/ML 50 ML VIAL. IJ ONE; +LOSA-73 PO; +METO25TA4 PO; +NITR0.4T22 SL; +OXYB5TAB33 PO; +PANT40TA77 PO; +TICA90TA PO
[2021-01-15 11:29] LABS: BASO % 1 % (0-3); EOS # 0.7 x10^3/uL (0.0-0.7); EOS % 9 % (0-3); HEMATOCRIT 34.2 % (36.0-47.0); HEMOGLOBIN 11.2 g/dL (12.0-15.5); LYMPH # 1.7 x10^3/uL (1.0-4.8); LYMPH % 22 % (24-48); MEAN CORPUSCULAR HEMOGLOBIN 30 pg (25-35); MEAN CORPUSCULAR HGB CONC 33 g/dL (31-37); MEAN CORPUSCULAR VOLUME 91 fL (79-100); MONO # 0.6 x10^3/uL (0.0-1.1); MONO % 8 % (0-9); NEUT # 4.5 x10^3/uL (1.8-7.7); NEUT % 60 % (31-73); PLATELET COUNT 228 x10^3/uL (140-400); RED BLOOD COUNT 3.75 x10^6/uL (3.50-5.40); RED CELL DISTRIBUTION WIDTH 19.9 % (11.5-14.5); WHITE BLOOD COUNT 7.6 x10^3/uL (4.0-11.0)
[2021-01-15 11:43] LABS: CALCIUM 10.9 mg/dL (8.5-10.1); CREATININE 1.1 mg/dL (0.6-1.0); GFR 47.3; POTASSIUM 4.2 mmol/L (3.5-5.1)
[2021-01-15 12:02] LABS: ALBUMIN 3.6 g/dL (3.4-5.0); ALBUMIN/GLOBULIN RATIO 1.1 (1.0-1.7); TOTAL BILIRUBIN 0.3 mg/dL (0.2-1.0)
== END ==
LOC: ONCLAB 10:28
PROVIDERS: ATTEND Internal Medicine Hematology & Oncology
DX: D50.8 Other iron deficiency anemias (principal)
CPT/HCPCS: 36415; 80053; 82607; 82728; 82746; 83540; 83550; 85025

== ENCOUNTER → 2021-02-26 | Outpatient (CLI) | payer MEDICARE ==
[2021-02-26 11:29] LABS: BASO % 1 % (0-3); EOS # 0.8 x10^3/uL (0.0-0.7); EOS % 10 % (0-3); HEMOGLOBIN 11.9 g/dL (12.0-15.5); LYMPH # 1.4 x10^3/uL (1.0-4.8); LYMPH % 18 % (24-48); MEAN CORPUSCULAR HEMOGLOBIN 30 pg (25-35); MEAN CORPUSCULAR HGB CONC 33 g/dL (31-37); MEAN CORPUSCULAR VOLUME 92 fL (79-100); MONO # 0.6 x10^3/uL (0.0-1.1); MONO % 8 % (0-9); NEUT # 4.9 x10^3/uL (1.8-7.7); NEUT % 63 % (31-73); PLATELET COUNT 233 x10^3/uL (140-400); RED BLOOD COUNT 3.93 x10^6/uL (3.50-5.40); RED CELL DISTRIBUTION WIDTH 16.9 % (11.5-14.5); WHITE BLOOD COUNT 7.8 x10^3/uL (4.0-11.0)
[2021-02-26 11:53] LABS: CALCIUM 10.7 mg/dL (8.5-10.1); CREATININE 1.1 mg/dL (0.6-1.0); GFR 47.3; POTASSIUM 4.4 mmol/L (3.5-5.1)
[2021-02-26 12:10] LABS: ALBUMIN 3.6 g/dL (3.4-5.0); ALBUMIN/GLOBULIN RATIO 0.9 (1.0-1.7); TOTAL BILIRUBIN 0.4 mg/dL (0.2-1.0); TOTAL PROTEIN 7.5 g/dL (6.4-8.2)
== END ==
LOC: ONCLAB 10:32
PROVIDERS: ATTEND Internal Medicine Hematology & Oncology
DX: D50.8 Other iron deficiency anemias (principal)
CPT/HCPCS: 36415; 80053; 82728; 83540; 83550; 85025

== ENCOUNTER → 2021-04-09 | Outpatient (CLI) | payer MEDICARE ==
[2021-04-09 11:00] LABS: BASO # 0.1 x10^3/uL (0.0-0.2); BASO % 1 % (0-3); EOS # 0.9 x10^3/uL (0.0-0.7); EOS % 10 % (0-3); HEMATOCRIT 34.2 % (36.0-47.0); HEMOGLOBIN 11.4 g/dL (12.0-15.5); LYMPH # 1.4 x10^3/uL (1.0-4.8); LYMPH % 16 % (24-48); MEAN CORPUSCULAR HEMOGLOBIN 31 pg (25-35); MEAN CORPUSCULAR HGB CONC 33 g/dL (31-37); MEAN CORPUSCULAR VOLUME 93 fL (79-100); MONO # 0.7 x10^3/uL (0.0-1.1); MONO % 8 % (0-9); NEUT # 5.8 x10^3/uL (1.8-7.7); NEUT % 66 % (31-73); PLATELET COUNT 225 x10^3/uL (140-400); RED BLOOD COUNT 3.68 x10^6/uL (3.50-5.40); WHITE BLOOD COUNT 8.9 x10^3/uL (4.0-11.0)
[2021-04-09 11:13] LABS: CREATININE 1.1 mg/dL (0.6-1.0); GFR 47.3; POTASSIUM 4.2 mmol/L (3.5-5.1)
[2021-04-09 11:33] LABS: ALBUMIN 3.3 g/dL (3.4-5.0); ALBUMIN/GLOBULIN RATIO 0.9 (1.0-1.7); TOTAL BILIRUBIN 0.3 mg/dL (0.2-1.0); TOTAL PROTEIN 6.9 g/dL (6.4-8.2)
== END ==
LOC: ONCLAB 10:21
PROVIDERS: ATTEND Internal Medicine Hematology & Oncology
DX: D50.8 Other iron deficiency anemias (principal)
CPT/HCPCS: 36415; 80053; 82728; 83540; 83550; 85025

== ENCOUNTER → 2021-04-10 | Outpatient (CLI) | payer MEDICARE ==
[~2021-04-10] MED LIST changes: +REGADENOSON 0.4 MG/5 ML DISP.SYRIN. IV ONE
--- NOTE | 2021-04-10 14:14 | RAD ---
MR#: [id number] Date of Study: 04/10/2021 Ordering Physician: JANES ULLOA, Referring Physician: SHAY FUENTES Tech: RED Izaguirre ARRT (R) (N) APPROVED REPORT Test Type: Pharmacological Stress Nurse/Tech: Kathy Fox RN Test Indications: Coronary artery disease Cardiac History: Hypertension,AL (stents x3 05/06) Medications: See Electronic Medical Record Medical History: See Electronic Medical Record Resting ECG: SB Resting Heart Rate: 59 bpm Resting Blood Pressure: 136/39mmHg Pretest Chest Pain: No chest pain Nurse/Tech Notes S1,S2 and lungs clear to auscultation. Consent: The procedure was explained to the patient in lay terms. Informed consent was witnessed. Hosea eout was entered into [employer]. History and Stress Test performed by RED Izaguirre ARRT (Saniya) (N) Pharm. Details Pharmacologic stress testing was performed using 0.4mg per 5ml of regadenoson given intravenously ove r 7-10 seconds. Stress Symptoms No chest pain or symptoms. POST EXERCISE Reason for Termination: Infusion complete Target HR: No Max HR: 101 bpm 87% of Maximum Predicted HR: 115 bpm Max Blood Pressure: 131/47mmHg Blood Pressure response to exercise: Normal blood pressure response during stress. Heart Rate response to exercise: WNL Chest Pain: No. Arrhythmia: No. ST Change: No. INTERPRETATION Stress EKG Conclusion: Baseline EKG showed sinus rhythm. No ischemic changes at peak stress. No arr hythmias. Imaging Protocol IMAGE PROTOCOL: Rest Tc-99m/stress Tc-99m 1 day Rest: Stress: Viability: Radiopharm.Tc99m HahzpfyqsTi53c Sestamibi Dose10.2mCi 31mCi Img Date 04/10/2021 04/10/2021 Inj-Img Adan60xiv. 60min. Rest Admin Site:IV - Right AntecubitalAdministrator:RED Izaguirre ARRT (Saniya)(N) Stress Admin Site: IV - Right AntecubitalAdministrator: Melinda Velasquez, NMTCB, ARRT (R)(N) STRESS DATA End Diast. Vol.33.0mlLVEDV index BSA22.0ml End Syst. Vol.3.0mlLVESV index BSA2.0ml Myocardial Mass79.0gEject. Zdtmamcu78.0% Stress Scores Regional WT1.00Summed WT5.00 Regional WM0.00Summed WM0.00 Study quality was good. Left Ventricular size was Normal at Rest and Stress. Lung uptake was . Left Ventricular ejection fraction is 88%. The rest and stress images show normal perfusion, normal contraction and thickening. LV Perf. Quant 17 Seg. SSS0.00 17 Seg. SRS2.00 17 Seg. SDS0.00 Stress Defect Extent (% LAD)0.00Rest Defect Extent (% LAD)0.00Rev. Defect Extent (% LAD)0.00 Stress Defect Extent (% LCX) 0.00Rest Defect Extent (% LCX)0.00Rev. Defect Extent (% LCX)0.00 Stress Defect Extent (% RCA)0.00Rest Defect Extent (% RCA)0.00Rev. Defect Extent (% RCA)0.00 Stress Defect Extent (% TRISH)0.00Rest Defect Extent (% TRISH)0.00Rev. Defect Extent (% TRISH)0.00 Conclusion 1. Regadenoson cardioisotope stress test did not show any evidence of ischemia or infarct. 2. Normal left ventricular systolic function with ejection fraction calculated at 88%. 3. Low risk for cardiac events. Signed by : Janes Ulloa, Electronically Approved : 04/10/2021 14:14:17
== END ==
LOC: NM 08:52
PROVIDERS: ATTEND Internal Medicine Cardiovascular Disease
DX: I25.10 Atherosclerotic heart disease of native coronary artery without angina pectoris (principal)
CPT/HCPCS: 78452; 93017; A9500; J2785

== ENCOUNTER → 2021-07-09 | Outpatient (CLI) | payer MEDICARE ==
[~2021-07-09] MED LIST changes: -REGADENOSON 0.4 MG/5 ML DISP.SYRIN. IV ONE
[2021-07-09 10:59] LABS: BASO # 0.1 x10^3/uL (0.0-0.2); BASO % 1 % (0-3); EOS # 1.1 x10^3/uL (0.0-0.7); EOS % 13 % (0-3); HEMATOCRIT 34.3 % (36.0-47.0); HEMOGLOBIN 11.1 g/dL (12.0-15.5); LYMPH # 2.3 x10^3/uL (1.0-4.8); LYMPH % 26 % (24-48); MEAN CORPUSCULAR HEMOGLOBIN 30 pg (25-35); MEAN CORPUSCULAR HGB CONC 32 g/dL (31-37); MEAN CORPUSCULAR VOLUME 93 fL (79-100); MONO # 0.6 x10^3/uL (0.0-1.1); MONO % 7 % (0-9); NEUT # 4.6 x10^3/uL (1.8-7.7); NEUT % 53 % (31-73); PLATELET COUNT 234 x10^3/uL (140-400); RED CELL DISTRIBUTION WIDTH 14.5 % (11.5-14.5); WHITE BLOOD COUNT 8.7 x10^3/uL (4.0-11.0)
[2021-07-09 11:05] LABS: CALCIUM 9.6 mg/dL (8.5-10.1); CREATININE 0.9 mg/dL (0.6-1.0); GFR 59.7; POTASSIUM 4.7 mmol/L (3.5-5.1)
[2021-07-09 11:21] LABS: ALBUMIN 3.1 g/dL (3.4-5.0); ALBUMIN/GLOBULIN RATIO 0.8 (1.0-1.7); TOTAL BILIRUBIN 0.2 mg/dL (0.2-1.0); TOTAL PROTEIN 6.9 g/dL (6.4-8.2)
[2021-07-09 11:48] LABS: % BASOS 2 % (0-3); % EOS 9 % (0-5); % LYMPHS 45 % (24-48); % MONOS 1 % (0-10); % SEGS 43 % (35-66); PLT ESTIMATE ADEQUATE (ADEQUATE)
== END ==
LOC: ONCLAB 10:42
PROVIDERS: ATTEND Internal Medicine Hematology & Oncology
DX: D50.8 Other iron deficiency anemias (principal)
CPT/HCPCS: 36415; 80053; 82728; 83540; 83550; 85007; 85025

== ENCOUNTER → 2021-10-08 | Outpatient (CLI) | payer MEDICARE ==
[2021-10-08 11:47] LABS: CALCIUM 11.3 mg/dL (8.5-10.1); CREATININE 1.1 mg/dL (0.6-1.0); GFR 47.2; POTASSIUM 4.7 mmol/L (3.5-5.1)
[2021-10-08 11:53] LABS: BASO # 0.1 x10^3/uL (0.0-0.2); BASO % 1 % (0-3); EOS # 0.7 x10^3/uL (0.0-0.7); EOS % 10 % (0-3); HEMOGLOBIN 11.3 g/dL (12.0-15.5); LYMPH # 1.7 x10^3/uL (1.0-4.8); LYMPH % 24 % (24-48); MEAN CORPUSCULAR HEMOGLOBIN 30 pg (25-35); MEAN CORPUSCULAR HGB CONC 32 g/dL (31-37); MEAN CORPUSCULAR VOLUME 91 fL (79-100); MONO # 0.6 x10^3/uL (0.0-1.1); MONO % 9 % (0-9); NEUT % 57 % (31-73); PLATELET COUNT 248 x10^3/uL (140-400); RED BLOOD COUNT 3.83 x10^6/uL (3.50-5.40); RED CELL DISTRIBUTION WIDTH 14.5 % (11.5-14.5); WHITE BLOOD COUNT 7.1 x10^3/uL (4.0-11.0)
[2021-10-08 12:06] LABS: ALBUMIN 3.6 g/dL (3.4-5.0); ALBUMIN/GLOBULIN RATIO 0.9 (1.0-1.7); TOTAL BILIRUBIN 0.2 mg/dL (0.2-1.0); TOTAL PROTEIN 7.4 g/dL (6.4-8.2)
== END ==
LOC: ONCLAB 11:00
PROVIDERS: ATTEND Internal Medicine Hematology & Oncology
DX: D50.8 Other iron deficiency anemias (principal)
CPT/HCPCS: 36415; 80053; 82728; 83540; 83550; 85025

== ENCOUNTER → 2021-10-22 | Outpatient (CLI) | payer MEDICARE ==
--- NOTE | 2021-10-23 08:25 | CARD ---
MR#: [id number] Date of Study: 10/22/2021 Ordering Physician: JANES ULLOA, Referring Physician: Ludwig FUENTES: Bridger Graham [facility] APPROVED REPORT EXAM: Two-dimensional and M-mode echocardiogram with Doppler and color Doppler. Other Information Quality : AverageHR: 75bpm Rhythm : NSR INDICATION Cardiac Disease: CAD 2D DIMENSIONS Left Atrium(2D)3.7 (1.6-4.0cm)IVSd0.9 (0.7-1.1cm) Aortic Root(2D)2.9 (2.0-3.7cm)LVDd4.1 (3.9-5.9cm) LVOT Diameter1.8 (1.8-2.4cm)PWd0.9 (0.7-1.1cm) LVDs2.0 (2.5-4.0cm)FS (%) 51.6 % SV63.2 mlLVEF(%)83.2 (>50%) Aortic Valve AoV Peak Fabio.126.7cm/sAoV VTI30.5cm AO Peak GR.6.4mmHgLVOT Peak Fabio.119.6cm/s AO Mean GR.4mmHgAVA (VMAX)2.40cm2 Mitral Valve MV E Gemqybgq22.2cm/sMV E Peak Gr.4mmHg MV DECEL [id number] A Clddbbaq71.8cm/s MV E Mean Gr.1mmHgE/A Ratio0.8 Pulmonary Valve PV Peak Anwqgdfo395.3cm/s Tricuspid Valve TR P. Yrcoqlzv560di/sTR Peak Gr.16mmHg Pulmonary Vein S1 Crctdiuc96.5cm/sD2 Wbrgnulu85.6cm/s LEFT VENTRICLE The left ventricle is normal size. There is normal left ventricular wall thickness. The left ventricu lar systolic function is normal. The ejection fraction is estimated at 60-65%. There is normal LV seg mental wall motion. Transmitral Doppler flow pattern is Grade I-abnormal relaxation pattern. No left ventricle thrombus noted on this study. There is no ventricular septal defect visualized. There is no left ventricular aneurysm. There is no mass noted in the left ventricle. RIGHT VENTRICLE The right ventricle is normal size. There is normal right ventricular wall thickness. The right ventr icular systolic function is normal. ATRIA The left atrium size is normal. The right atrium size is normal. The interatrial septum is intact wit h no evidence for an atrial septal defect or patent foramen ovale as noted on 2-D or Doppler imaging. AORTIC VALVE The aortic valve is normal in structure and function. Doppler and Color Flow revealed no significant aortic regurgitation. There is no significant aortic valvular stenosis. There is no aortic valvular v egetation. MITRAL VALVE The mitral valve is normal in structure and function. There is no evidence of mitral valve prolapse. There is no mitral valve stenosis. Doppler and Color Flow revealed no mitral valve regurgitation note d. TRICUSPID VALVE The tricuspid valve is normal in structure and function. Doppler and Color Flow revealed trace tricus pid regurgitation. There is no tricuspid valve prolapse or vegetation. There is no tricuspid valve st enosis. PULMONIC VALVE The pulmonary valve is normal in structure and function. Doppler and Color Flow revealed no pulmonic valvular regurgitation. There is no pulmonic valvular stenosis. GREAT VESSELS The aortic root is normal in size. The ascending aorta is normal in size. The pulmonary artery is nor mal. The IVC is normal in size and collapses >50% with inspiration. PERICARDIAL EFFUSION There is no pleural effusion. There is no evidence of significant pericardial effusion. Critical Notification Critical Value: No <Conclusion> The left ventricular systolic function is normal. The ejection fraction is estimated at 60-65%. There is normal LV segmental wall motion. Transmitral Doppler flow pattern is Grade I-abnormal relaxation pattern. Trace tricuspid regurgitation. There is no evidence of significant pericardial effusion. Signed by : Janes Ulloa, Electronically Approved : 10/23/2021 08:25:24
== END ==
LOC: ECHO 10:47
PROVIDERS: ATTEND Internal Medicine Cardiovascular Disease
DX: I25.10 Atherosclerotic heart disease of native coronary artery without angina pectoris (principal)
CPT/HCPCS: 93306; C8929